=== PATIENT | female | born 1935 | race Caucasian/White ===

== ENCOUNTER → 2016-07-25 | Day surgery (SDC) | payer OTHER ==
[~2016-07-25] VITALS: Ht 157.5 cm; Wt 49.9 kg
[2016-07-25] VITALS (11 sets, daily range): BP systolic 123–158; BP diastolic 65–82
[~2016-07-25] MED LIST: Akten 3.5% 1ml Btl ONE; BSS 15ml BTL ONE; BSS 500ml btl ONE; Dexamethasone 4mg/ml vial ONE; Diclofenac Sod 0.1% Op Soln ONE; EPINEPHrine 1mg/1ml Amp ONE; Gatifloxacin Opth Solution 0.5% ONE; LR 1000ml ONE; Lidocaine 1% MPF 10mg/ml 5ml ONE; Midazolam 2mg/2ml Inj ONE; NS Irrig 1000ml ONE; PAXIL20 MG ORAL; Phenylephrine 2.5% Op Soln ONE; Povidone-Iodine 5% opth solution ONE; Sodium Hyaluronate 14 mg/ml 0.85ml ONE; Sterile Water Irrig 1000ml IRRIG ONE; Tobradex Opth Susp 2.5ml ONE; Tropicamide 1% Opth Soln ONE; WELLBUTRIN SR150 M1 PO
[2016-07-25] MEDS: Tropicamide 1% Opth Soln RIGHT EYE SCH ×3 (07:31→07:56)
[2016-07-25] MEDS: Akten 3.5% 1ml Btl RIGHT EYE SCH ×3 (07:31→07:56)
[2016-07-25] MEDS: Diclofenac Sod 0.1% Op Soln RIGHT EYE SCH ×3 (07:31→07:56)
[2016-07-25] MEDS: Tobradex Opth Susp 2.5ml RIGHT EYE SCH ×3 (07:31→07:56)
[2016-07-25] MEDS: Phenylephrine 2.5% Op Soln RIGHT EYE SCH ×3 (07:31→07:56)
[2016-07-25] MEDS: Gatifloxacin Opth Solution 0.5% RIGHT EYE SCH ×3 (07:32→07:56)
--- NOTE | 2016-07-25 07:37 | Pre-Procedure Note/Attestation ---
Pre-Procedure Note/Attestation Complete Prior to Procedure Planned Procedure: right Procedure Narrative: cataract extraction with implant right eye Indications for Procedure Pre-Operative Diagnosis: cataract right eye Attestation I attest that I discussed the nature of the procedure; its benefits; risks and complications; and alternatives (and the risks and benefits of such alternatives ), prior to the procedure, with the patient (or the patient's legal quality audit representative). I attest that, if there was a reasonable possibility of needing a blood transfusion, the patient (or the patient's legal quality audit representative) was given the [facility] standardized written summary, pursuant to the [place] Blood Safety Act ([place] Health and Safety Code # 1645, as amended). I attest that I re-evaluated the patient just prior to the surgery and that there has been no change in the patient's H&P, except as documented below: GWENDOLYN FOWLER Jul 25, 2016 07:37
--- NOTE | 2016-07-25 08:37 | Anethesia Preoperative Eval ---
Anesthesia Pre-op PMH/ROS General Date of Evaluation: Jul 25, 2016 Time of Evaluation: 08:36 Anesthesiologist: rosie ASA Score: ASA 2 Mallampati Score Class I : Soft palate, uvula, fauces, pillars visible Class II: Soft palate, uvula, fauces visible Class III: Soft palate, base of uvula visible Class IV: Only hard plate visible Mallampati Classification: Class II Surgeon: onesimo Diagnosis: cataract Surgical Procedure: cataract extraction with IOL right eye Anesthesia History: none Family History: no anesthesia problems Allergies: Coded Allergies: No Known Allergies (Unverified , 07/24/16) Medications: see eMAR Past Medical History Cardiovascular: Denies: CAD, HTN, AR, arrhythmia, other, valve dz Pulmonary: Denies: COPD, KERI, asthma, other Gastrointestinal/Genitourinary: Reports: CRI Neurologic/Psychiatric: Reports: depression/anxiety Endocrine: Denies: DM, hypothyroidism, other, steroids HEENT: Reports: cataract (R) Hematology/Immune: Denies: DVT, anemia, bleeding disorder, other Musculoskeletal/Integumentary: Denies: DDD, DJD, OA, RA, edema, other PSxH Narrative: none Anesthesia Pre-op Phys. Exam Physician Exam Last Vital Signs Date Time Temp Pulse Resp B/P Pulse Ox O2 Delivery O2 Flow Rate FiO2 07/25/16 07:45 97.9 68 20 146/82 100 Room Air Constitutional: NAD Neurologic: CN 2-12 intact Cardiovascular: RRR Respiratory: CTA Gastrointestinal: S/NT/ND Airway Exam Mallampati Classification 2 Mallampati Score: Class II MO: full ROM: full Dentures: no lower, no upper Anesthesia Pre-op A/P Studies Pre-op Studies: EKG - sr Risk Assessment & Plan Plan: mac Status Change Before Surgery: No Pre-Antibiotics Drug: none JUSTINO SINGH CRNA Jul 25, 2016 08:37
--- NOTE | 2016-07-25 08:58 | Brief Operative Note ---
Immediate Post Operative Note Operative Note Pre-op Diagnosis: cataract right eye Procedure: phacoemulsification of cataract with implant left eye Post-op Diagnosis: same as pre-op Surgeon: gwendoyln echols Licensed Sales Assistant: none Anesthesiologist: jerman velez crna Anesthesia: MAC Specimen: none Complications: none Condition: stable Estimated Blood Loss: none Drains: none Implant(s) used?: Yes GWENDOLYN ECHOLS Jul 25, 2016 08:58
--- NOTE | 2016-07-25 09:06 | Immediate Post-Op Evaluation ---
Immediate Post-Op Evalulation Immediate Post-Op Evalulation Procedure: cataract extraction with IOL righe eye Date of Evaluation: Jul 25, 2016 Time of Evaluation: 08:40 IV Fluids: 200 Blood Pressure Systolic: 133 Blood Pressure Diastolic: 57 Pulse Rate: 71 O2 Sat by Pulse Oximetry: 99 Temperature (Fahrenheit): 99.1 Nausea: No Vomiting: No Complications none Patient Status: awake, patent Hydration Status: adequate Drug: none TARRILLIONJUSTINO CRNA Jul 25, 2016 09:06
--- NOTE | 2016-07-25 09:47 | 48 Hour Post Anesthesia Eval ---
Post Anesthesia Evaluation Procedure: cataract extraction with IOL righe eye Date of Evaluation: Jul 25, 2016 Time of Evaluation: 09:46 Blood Pressure Systolic: 114 0: 70 Pulse Rate: 75 O2 Sat by Pulse Oximetry: 98 Airway: patent Nausea: No Vomiting: No Hydration Status: adequate Mental Status/LOC: patient returned to baseline Post-Anesthesia Complications: none Follow-up care needed: N/A JUSTINO SINGH CRNA Jul 25, 2016 09:47
--- NOTE | 2016-07-25 12:58 | Operative Note - Dictated ---
DATE OF OPERATION: 07/25/2016 PREOPERATIVE DIAGNOSIS: Dense cataract, right eye. POSTOPERATIVE DIAGNOSIS: Dense cataract, right eye. PROCEDURE: Phacoemulsification of cataract, right eye with placement of posterior chamber intraocular lens. SURGEON: Peyman Caicedo M.D. SAWDUST MACHINE OPERATOR: None. ANESTHESIA: MAC/topical. ANESTHESIOLOGIST: Janet Hansen CRNA. INDICATION FOR PROCEDURE: Poor vision, right eye. DESCRIPTION OF FINDINGS: Dense nuclear sclerotic and posterior subcapsular cataract, right eye. DESCRIPTION OF PROCEDURE: The patient received a topical anesthetic block consisting of 3.5% Akten eyedrops. The eye was then prepped and draped in the usual manner. A lid speculum was placed. An operating Zeiss microscope was positioned. The temporal corneal groove was made with a merari blade. A SuperSharp blade made a stab incision at the 12 o'clock position. A 0.1 mL of 1% nonpreserved intracameral lidocaine was injected. Healon was instilled into the anterior chamber and a 2.5/2.8 mm trapezoidal merari blade was used to complete the temporal corneal wound. A cystotome was used to create an anterior capsular flap. Utrata forceps were used to complete the capsulorrhexis. BSS on a cannula was used to hydrodissect the nucleus. The lens nucleus was phacoemulsified in a phaco-fracture technique. Remaining cortical material was removed from the eye and the posterior capsule was polished with the I/A on Cap vac. Healon was instilled in a capsular bag and anterior chamber and Abbot foldable one-piece posterior chamber intraocular lens, model ZCB00, power 21.5 diopter, serial #[id number] was placed in the injector. The lens was put in a capsular bag. The I/A tip was used to remove the Healon and position the lens. The wound edge was hydrated with BSS and a blunt-tipped cannula. The wound was checked and found to be watertight. The lid speculum was removed and a drop of TobraDex and Zymaxid was placed. A clear plastic shield was taped over the eye. The patient tolerated the procedure well and left the operating room in good condition. Peyman Caicedo M.D. ([facility]) DR: Rossana JOB#: [id number] CC: Francisco Karen Grijalva
== END | disposition home or self-care (01) ==
LOC: SUR 06:40
DX: H25.11 Age-related nuclear cataract, right eye (principal); H25.041 Posterior subcapsular polar age-related cataract, right eye; N18.3 Chronic kidney disease, stage 3 (moderate); E78.00 Pure hypercholesterolemia, unspecified; F33.1 Major depressive disorder, recurrent, moderate; F41.9 Anxiety disorder, unspecified; M81.0 Age-related osteoporosis without current pathological fracture; L23.9 Allergic contact dermatitis, unspecified cause; M75.92 Shoulder lesion, unspecified, left shoulder
CPT/HCPCS: 66984; J0171; J1100; J2250; J7120; V2632; 94003; 94150